=== PATIENT | female | born 1980 | race Caucasian/White ===

== ENCOUNTER 2019-01-28 18:34 | Inpatient (IN) | payer BC ==
[~2019-01-28] VITALS: Ht 160 cm; Wt 77.1 kg
[2019-01-28] MEDS ORDERED: IBUPROFEN 400 MG TABLET. PO PRN (18:45)
[2019-01-28] MEDS ORDERED: BUTORPHANOL 2 MG/ML VIAL. IV PRN ×2 (18:45)
[2019-01-28] MEDS ORDERED: CITRIC ACID/SODIUM CITRATE 30 ML SOLUTION. PO PRN (18:45)
[2019-01-28] MEDS ORDERED: ZOLPIDEM 5 MG TABLET. PO PRN (18:45)
[2019-01-28] MEDS ORDERED: 0.9 % SODIUM CHLORIDE 10 ML DISP.SYRIN. IV PRN (18:45)
[2019-01-28] MEDS ORDERED: ACETAMINOPHEN 325 MG TABLET. PO PRN (18:45)
[2019-01-28] MEDS ORDERED: OXYTOCIN 30 UNIT/500 ML PREMIX 500 ML IV PRN ×2 (18:45)
[2019-01-28] MEDS ORDERED: TERBUTALINE 1 MG/ML VIAL. SQ PRN (18:45)
[2019-01-28] MEDS ORDERED: fentaNYL PF VIAL 100 MCG/2 ML VIAL IV PRN ×2 (18:45)
[2019-01-28] MEDS ORDERED: ONDANSETRON PF 4 MG/2 ML VIAL. IV PRN (18:45)
[2019-01-28] MEDS ORDERED: LIDOCAINE 1% PF 30 ML VIAL. INJ PRN (18:45)
[2019-01-28] MEDS ORDERED: DINOPROSTONE 10 MG SUPP.VAG VG ONE (19:00)
[2019-01-28] MEDS: IV RINGERS,LACTATED 1000ML 1,000 ML IV SCH (20:00)
[2019-01-28 20:14] LABS: BASO % 0 % (0-3); EOS % 0 % (0-3); HEMATOCRIT 29.3 % (36.0-47.0); HEMOGLOBIN 9.6 g/dL (12.0-15.5); LYMPH # 1.2 x10^3/uL (1.0-4.8); LYMPH % 16 % (24-48); MEAN CORPUSCULAR HEMOGLOBIN 27 pg (25-35); MEAN CORPUSCULAR HGB CONC 33 g/dL (31-37); MEAN CORPUSCULAR VOLUME 82 fL (79-100); MONO # 0.5 x10^3/uL (0.0-1.1); MONO % 6 % (0-9); NEUT % 78 % (31-73); PLATELET COUNT 205 x10^3/uL (140-400); RED CELL DISTRIBUTION WIDTH 17.7 % (11.5-14.5); WHITE BLOOD COUNT 7.7 x10^3/uL (4.0-11.0)
[2019-01-28 20:28] LABS: BILIRUBIN,URINE NEGATIVE (NEG); CLARITY,URINE CLOUDY; COLOR,URINE YELLOW; NITRITE,URINE NEGATIVE (NEG); PROTEIN,URINE NEGATIVE (NEG-TRACE)
[2019-01-28 20:41] LABS: BACTERIA,URINE MANY /HPF (0-FEW); RBC,URINE TNTC /HPF (0-2); SQUAMOUS EPITHELIAL CELL,UR MANY /LPF
[2019-01-29] MEDS: IV RINGERS,LACTATED 1000ML 1,000 ML IV SCH ×3 (09:36→23:38)
--- NOTE | 2019-01-29 13:31 | RAD ---
EXAM: Obstetrics sonogram. HISTORY: Active labor. Spontaneous rupture of membranes. Meconium fluids. Breech presentation. TECHNIQUE: Sonographic imaging of a gravid uterus was performed. COMPARISON: None. FINDINGS: There is a single intrauterine fetus in breech presentation with a heart rate of 131 bpm. The amniotic fluid index is decreased at 2.3 cm, consistent with reported spontaneous rupture of membranes. There is a grade 2 anterior placenta without evidence of placenta previa. The gestational age based on LMP is 39 weeks and 6 days and the TAN is 01/30/2019. IMPRESSION: 1. Single intrauterine fetus in breech presentation with a heart rate of 131 bpm. 2. Decreased BILLY of 2.3 cm, consistent with ruptured membranes. Electronically signed by: Catrina Hawk MD (01/29/2019 1:28 PM) [facility]
[2019-01-29] MEDS ORDERED: fentaNYL PF VIAL 100 MCG/2 ML VIAL ONE (13:33)
[2019-01-29] MEDS ORDERED: MORPHINE PF 5 MG/10 ML VIAL. ONE (13:33)
[2019-01-29] MEDS ORDERED: PHENYLEPHRINE in 0.9% NACL PF 1 MG/10 ML SYRINGE. IV ONE ×2 (13:35→15:06)
[2019-01-29] MEDS ORDERED: ePHEDrine PF IN SALINE 50 MG/10 ML SYRINGE. IV ONE (13:35)
[2019-01-29] MEDS ORDERED: OXYTOCIN 10 UNIT/ML VIAL. ONE (13:36)
[2019-01-29] MEDS ORDERED: CITRIC ACID/SODIUM CITRATE 30 ML SOLUTION. PO ONE (13:45)
[2019-01-29] MEDS ORDERED: BUPIVACAINE MPF 0.75% DEXTROSE 2 ML AMPUL. ONE (14:17)
--- NOTE | 2019-01-29 15:43 | PDOC1 ---
OB - History Hx of Present Care: Good Care Ultrasounds: No ultrasounds Obstetrical Complications: None Medical Complications: None Past Family/Social History * Past Medical, Surgical, Family and Obstetric Histories reviewed from chart. Blood Type: A+ Rubella: Immune RPR/VDRL: Negative GBS Status: Negative HBsAG: Negative OB - Chief Complaint & HPI Date of Admission: Date of Admission: January 28, 2019 at 18:34 Chief Complaint/History : 5 Para: 4 EDC: January 30, 2019 Reason for admission: induction of labor Admission Nurse Assessment Rev: Yes OB - Admission Exam Physical Exam Heart: Regular Rate Lungs: Clear, Equal Abdomen: Gravid Extremities: Normal Pulses, No tenderness or swelling Reflexes: Normal Cervical Dilatation: 1cm Effacement: 25% Station: Ballotable Membranes: Intact Heart Rate: Normal Accelerations: Accelerations Present Short Term Variability: Present Contractions on Admission: None Assessment/Plan Assessment/Plan TIUP Schedule Induction ACSVD JUAN SEAMAN MD January 29, 2019 15:43
[2019-01-29] MEDS ORDERED: ZOLPIDEM 5 MG TABLET. PO PRN (15:45)
[2019-01-29] MEDS ORDERED: MAGNESIUM HYDROXIDE 2,400 MG/30 ML ORAL.SUSP. PO PRN (15:45)
[2019-01-29] MEDS ORDERED: 0.9 % SODIUM CHLORIDE 10 ML DISP.SYRIN. IV PRN (15:45)
[2019-01-29] MEDS ORDERED: ONDANSETRON PF 4 MG/2 ML VIAL. IV PRN (15:45)
[2019-01-29] MEDS ORDERED: MMR per PROTOCOL. MC PRN (15:45)
[2019-01-29] MEDS ORDERED: MAG HYDROX/ALUMINUM HYD/SIMETH 30 ML ORAL.SUSP PO PRN (15:45)
[2019-01-29] MEDS ORDERED: oxyCODONE/APAP 5/325 1 TAB TABLET PO PRN (15:45)
[2019-01-29] MEDS ORDERED: diphenhydrAMINE ORAL ELIXIR 12.5 MG/5 ML ML PO PRN (15:45)
[2019-01-29] MEDS ORDERED: OXYTOCIN 30 UNIT/500 ML PREMIX 500 ML IV PRN (15:45)
[2019-01-29] MEDS ORDERED: SIMETHICONE 80 MG TAB.CHEW PO PRN (15:45)
--- NOTE | 2019-01-29 15:46 | PDOC ---
BRIEF OPERATIVE NOTE Pre-Op Diagnosis TIUP BREECH multiparous desires permanent sterilization Post-Op Diagnosis Same Procedure Performed Primary LTC/S BTL Surgeon Seema Pouncer Machine None Anesthesia Type: Regional Blood Loss 700cc Specimens Obtained R and L ova ducts Findings Female 03/25 Complications None JUAN SEAMAN MD January 29, 2019 15:46
--- NOTE | 2019-01-29 16:16 | OP ---
DATE OF SURGERY: 01/29/2019 PREOPERATIVE DIAGNOSES:. Term intrauterine , initially initiated induction. The patient was found to be breech, opted for a primary and bilateral tubal ligation. POSTOPERATIVE DIAGNOSES: Term intrauterine , initially initiated induction. The patient was found to be breech, opted for a primary and bilateral tubal ligation. PROCEDURE: Primary low transverse with bilateral tubal ligation. SURGEON: Reno Stephenson M.D. ASIC ENGINEER: None. ANESTHESIA: Regional. ESTIMATED BLOOD LOSS: 700 mL. FLUIDS: Crystalloid. SPECIMENS: Bilateral oviducts, left and right. COMPLICATIONS: None. CONDITION: Stable. FINDINGS: Female infant, Apgars 8, 9 and 9, weight 7 pounds 15 ounces. Normal uterus, tubes and ovaries. DESCRIPTION OF PROCEDURE: Risks, benefits, indications, alternatives, and expectations discussed with the patient and the patient's . The patient was brought to the OR theater, placed in the supine position with left lateral uterine displacement. A low transverse Pfannenstiel incision was made sharply with a scalpel and carried down through subcutaneous tissue, Bovie cautery. Rectus fascia nicked in midline with Bovie cautery, extended laterally in each direction with Bovie cautery. Upper edge of rectus fascia was grasped x 2 with Bill clamps, elevated way above the rectus muscle. Rectus muscle both bluntly and sharply with Bovie cautery and gloved hand. Same procedure was carried out on lower edge of rectus fascia. Rectus muscle split in midline and extended superiorly and inferiorly with Bovie cautery. Parietal peritoneum was entered bluntly with gloved hand. With gentle stretch on the rectus muscle, room was made for delivery of the infant. Campbell retractor was placed within the pelvic cavity. Sponges placed in the gutters bilaterally. Low transverse hysterotomy incision was made sharply with scalpel with care not to injure any underlying structures. The incision was extended superiorly and inferiorly. The incision was then extended laterally and superiorly with gloved hand. Meconium was noted. Gloved hand was placed in the lower uterine segment, used to elevate the presenting breech. The breech was delivered in usual fashion without any difficulties. Baby cried spontaneously and moved all extremities. Infant was bulb suctioned. Cord doubly clamped, transected cord between two clamps. was handed to nursing care in attendance. Cord blood sample was taken. Placenta delivered spontaneously intact, 3-vessel cord. Uterus was wiped free of any adherent membranes. Low transverse hysterotomy incision was reapproximated with 0 Monocryl in running locking manner, imbricated with vertical mattress stitch fashion. Good hemostasis was assured. Some areas of bleeding were controlled with Jamil. Sponges were removed from the gutters. First, the left tube was delivered. A relatively avascular portion was made after the region was noted. A window was created, 2-0 plain ties were used to doubly ligate the tube approximately 2 cm apart. Tube was transected between these two ligatures and ends were burned and allowed to fall back within this anatomical position. Same procedure was carried out opposite side. Good hemostasis was assured. The Campbell retractor was removed. Gutters were inspected. Tubes and ovaries were inspected and noted be hemostatic and gutters free of any blood or debris. Lower uterine segment was free of any bleeding. Jamil was noted to have stopped any oozing that was previously present. The peritoneum was reapproximated with 3-0 Vicryl in a running manner. This stitch also reapproximated rectus muscle in the midline. Rectus muscle inspected and no areas of bleeding were noted. Rectus fascia was reapproximated with 0 Prolene self-retaining stitch, Stratafix. Subcutaneous tissue was irrigated copiously with warm normal saline. Rochelle fascia was reapproximated with 2-0 plain. The skin was reapproximated with Insorb nehal. Sponge, needle, instrument counts correct x 2 per nursing staff. The patient went to postop anesthesia recovery in stable condition. RENO STEPHENSON MD DR: NIDIA/carmen JOB#: [id number] / [id number]
[2019-01-29] MEDS: FERROUS SULFATE 325 MG TABLET. PO SCH (17:00)
[2019-01-29] MEDS ORDERED: KETOROLAC 30 MG/ML VIAL. IV PRN (17:30)
[2019-01-29] MEDS: KETOROLAC 30 MG/ML VIAL. IV PRN ×2 (17:31→23:43)
[2019-01-29 20:07] VITALS: BP 130/73
[2019-01-29 21:19] VITALS: BP 126/69
[2019-01-29] MEDS: ceFAZolin SODIUM IV Push 1 GM VIAL. IVP SCH (21:41)
[2019-01-29] MEDS ORDERED: ceFAZolin SODIUM 1 GM in IV DEXTROSE 5% 50 ML IV SCH (22:00)
[2019-01-30 01:40] VITALS: BP 113/67
[2019-01-30 04:23] LABS: BASO % 0 % (0-3); EOS % 0 % (0-3); HEMATOCRIT 25.8 % (36.0-47.0); HEMOGLOBIN 8.3 g/dL (12.0-15.5); LYMPH # 0.9 x10^3/uL (1.0-4.8); LYMPH % 11 % (24-48); MEAN CORPUSCULAR HEMOGLOBIN 26 pg (25-35); MEAN CORPUSCULAR HGB CONC 32 g/dL (31-37); MEAN CORPUSCULAR VOLUME 82 fL (79-100); MONO # 0.4 x10^3/uL (0.0-1.1); MONO % 5 % (0-9); NEUT # 6.7 x10^3uL (1.8-7.7); NEUT % 83 % (31-73); PLATELET COUNT 173 x10^3/uL (140-400); RED BLOOD COUNT 3.16 x10^6/uL (3.50-5.40); RED CELL DISTRIBUTION WIDTH 17.7 % (11.5-14.5); WHITE BLOOD COUNT 8.1 x10^3/uL (4.0-11.0)
[2019-01-30 05:41] VITALS: BP 117/62
[2019-01-30] MEDS: oxyCODONE/APAP 5/325 1 TAB TABLET PO PRN ×4 (06:29→19:58)
[2019-01-30] MEDS: IBUPROFEN 400 MG TABLET. PO SCH ×2 (06:29→19:58)
[2019-01-30] MEDS: ceFAZolin SODIUM IV Push 1 GM VIAL. IVP SCH ×2 (06:31→13:23)
--- NOTE | 2019-01-30 08:07 | PDOC ---
OB Progress Note Date of Service 01/30/19 Time of Evaluation 0805 Notes Pt. feeling well. No complaints. Lab Laboratory Tests Test 01/28/19 19:28 01/28/19 19:50 01/28/19 21:10 01/30/19 03:05 Urine Collection Type Unknown Urine Color Yellow Urine Clarity Cloudy Urine pH 6.0 Urine Specific [place] 1.025 Urine Protein Negative mg/dL (NEG-TRACE) Urine Glucose (UA) Negative mg/dL (NEG) Urine Ketones (Stick) 15 mg/dL (NEG) Urine Blood Large (NEG) Urine Nitrite Negative (NEG) Urine Bilirubin Negative (NEG) Urine Urobilinogen Dipstick 1.0 mg/dL (0.2 mg/dL) Urine Leukocyte Esterase Small (NEG) Urine RBC Tntc /HPF (0-2) Urine WBC 11-20 /HPF (0-4) Urine Squamous Epithelial Cells Many /LPF Urine Bacteria Many /HPF (0-FEW) Urine Mucus Marked /LPF White Blood Count 7.7 x10^3/uL (4.0-11.0) 8.1 x10^3/uL (4.0-11.0) Red Blood Count 3.60 x10^6/uL (3.50-5.40) 3.16 x10^6/uL (3.50-5.40) Hemoglobin 9.6 g/dL (12.0-15.5) 8.3 g/dL (12.0-15.5) Hematocrit 29.3 % (36.0-47.0) 25.8 % (36.0-47.0) Mean Corpuscular Volume 82 fL (79-100) 82 fL (79-100) Mean Corpuscular Hemoglobin 27 pg (25-35) 26 pg (25-35) Mean Corpuscular Hemoglobin Concent 33 g/dL (31-37) 32 g/dL (31-37) Red Cell Distribution Width 17.7 % (11.5-14.5) 17.7 % (11.5-14.5) Platelet Count 205 x10^3/uL (140-400) 173 x10^3/uL (140-400) Neutrophils (%) (Auto) 78 % (31-73) 83 % (31-73) Lymphocytes (%) (Auto) 16 % (24-48) 11 % (24-48) Monocytes (%) (Auto) 6 % (0-9) 5 % (0-9) Eosinophils (%) (Auto) 0 % (0-3) 0 % (0-3) Basophils (%) (Auto) 0 % (0-3) 0 % (0-3) Neutrophils # (Auto) 6.0 x10^3uL (1.8-7.7) 6.7 x10^3uL (1.8-7.7) Lymphocytes # (Auto) 1.2 x10^3/uL (1.0-4.8) 0.9 x10^3/uL (1.0-4.8) Monocytes # (Auto) 0.5 x10^3/uL (0.0-1.1) 0.4 x10^3/uL (0.0-1.1) Eosinophils # (Auto) 0.0 x10^3/uL (0.0-0.7) 0.0 x10^3/uL (0.0-0.7) Basophils # (Auto) 0.0 x10^3/uL (0.0-0.2) 0.0 x10^3/uL (0.0-0.2) Treponema pallidum Antibody Nonreactive (Nonreactive) Laboratory Tests Test 01/30/19 03:05 White Blood Count 8.1 x10^3/uL (4.0-11.0) Red Blood Count 3.16 x10^6/uL (3.50-5.40) Hemoglobin 8.3 g/dL (12.0-15.5) Hematocrit 25.8 % (36.0-47.0) Mean Corpuscular Volume 82 fL (79-100) Mean Corpuscular Hemoglobin 26 pg (25-35) Mean Corpuscular Hemoglobin Concent 32 g/dL (31-37) Red Cell Distribution Width 17.7 % (11.5-14.5) Platelet Count 173 x10^3/uL (140-400) Neutrophils (%) (Auto) 83 % (31-73) Lymphocytes (%) (Auto) 11 % (24-48) Monocytes (%) (Auto) 5 % (0-9) Eosinophils (%) (Auto) 0 % (0-3) Basophils (%) (Auto) 0 % (0-3) Neutrophils # (Auto) 6.7 x10^3uL (1.8-7.7) Lymphocytes # (Auto) 0.9 x10^3/uL (1.0-4.8) Monocytes # (Auto) 0.4 x10^3/uL (0.0-1.1) Eosinophils # (Auto) 0.0 x10^3/uL (0.0-0.7) Basophils # (Auto) 0.0 x10^3/uL (0.0-0.2) Medications Current Medications Sodium Chloride (Normal Saline Flush) 3 ml QSHIFT PRN IV AFTER MEDS AND BLOOD DRAWS; Start 01/28/19 at 18:45 Ringer's Solution 1,000 ml @ 125 mls/hr Q8H IV Last administered on 01/29/19at 23:38; Start 01/28/19 at 19:00 Butorphanol Tartrate (Stadol) 1 mg PRN Q1HR PRN IV mild to moderate labor pain; Start 01/28/19 at 18:45 Butorphanol Tartrate (Stadol) 2 mg PRN Q1HR PRN IV Severe labor pain; Start 01/28/19 at 18:45 Fentanyl Citrate (Fentanyl 2ml Vial) 50 mcg PRN Q30MIN PRN IV Mild to moderate pain; Start 01/28/19 at 18:45 Fentanyl Citrate (Fentanyl 2ml Vial) 100 mcg PRN Q30MIN PRN IV Severe pain; Start 01/28/19 at 18:45 Acetaminophen (Tylenol) 650 mg PRN Q6HRS PRN PO MILD PAIN / TEMP; Start 01/28/19 at 18:45 Ondansetron HCl (Zofran) 4 mg PRN Q4HRS PRN IV NAUSEA/VOMITING; Start 01/28/19 at 18:45 Citric Acid/ Sodium Citrate (Bicitra) 30 ml 1X PRN PRN PO DYSPEPSIA; Start 01/28/19 at 18:45; Stop 01/29/19 at 18:44; Status DC Zolpidem Tartrate (Ambien) 5 mg PRN QHS PRN PO INSOMNIA; Start 01/28/19 at 18:45 Terbutaline Sulfate (Brethine) 0.25 mg 1X PRN PRN SQ SEE COMMENTS; Start 01/28/19 at 18:45; Stop 01/29/19 at 18:44; Status DC Lidocaine HCl (Xylocaine 1% Pf 30ml Vial) 30 ml 1X PRN PRN INJ SEE COMMENTS; Start 01/28/19 at 18:45; Stop 01/30/19 at 18:44 Oxytocin/Sodium Chloride 500 ml @ 0 mls/hr CONT PRN IV SEE I/O RECORD Last administered on 01/29/19at 09:37; Start 01/28/19 at 18:45 Oxytocin/Sodium Chloride 500 ml @ 0 mls/hr CONT PRN PRN IV Post delivery bleeding; Start 01/28/19 at 18:45 Ibuprofen (Motrin) 800 mg PRN Q6HRS PRN PO PAIN; Start 01/28/19 at 18:45 Dinoprostone (Cervidil) 10 mg 1X ONCE VG Last administered on 01/28/19at 19:59; Start 01/28/19 at 19:00; Stop 01/28/19 at 19:01; Status DC Fentanyl Citrate (Fentanyl 2ml Vial) 100 mcg STK-MED ONCE .ROUTE ; Start 01/29/19 at 13:33; Stop 01/29/19 at 13:34; Status DC Morphine Sulfate (Morphine Preservative Free) 5 mg STK-MED ONCE .ROUTE ; Start 01/29/19 at 13:33; Stop 01/29/19 at 13:34; Status DC Phenylephrine HCl (PHENYLEPHRINE in 0.9% NACL PF) 1 mg STK-MED ONCE IV ; Start 01/29/19 at 13:35; Stop 01/29/19 at 13:36; Status DC Ephedrine Sulfate (ePHEDrine PF IN SALINE SYRINGE) 50 mg STK-MED ONCE IV ; St art 01/29/19 at 13:35; Stop 01/29/19 at 13:36; Status DC Oxytocin (Pitocin) 10 unit STK-MED ONCE .ROUTE ; Start 01/29/19 at 13:36; Stop 01/29/19 at 13:37; Status DC Citric Acid/ Sodium Citrate (Bicitra) 30 ml 1X ONCE PO Last administered on 01/29/19at 13:43; Start 01/29/19 at 13:45; Stop 01/29/19 at 13:46; Status DC Cefazolin Sodium/ Dextrose 50 ml @ 100 mls/hr 1X ONCE IV Last administered on 01/29/19at 13:43; Start 01/29/19 at 13:45; Stop 01/29/19 at 14:14; Status DC Bupivacaine HCl/ Dextrose (Marcaine Spinal 0.75%) 2 ml STK-MED ONCE .ROUTE ; Start 01/29/19 at 14:17; Stop 01/29/19 at 14:18; Status DC Phenylephrine HCl (PHENYLEPHRINE in 0.9% NACL PF) 1 mg STK-MED ONCE IV ; Start 01/29/19 at 15:06; Stop 01/29/19 at 15:07; Status DC Sodium Chloride (Normal Saline Flush) 3 ml QSHIFT PRN IV AFTER MEDS AND BLOOD DRAWS; Start 01/29/19 at 15:45 Oxytocin/Sodium Chloride 500 ml @ 125 mls/hr CONT PRN IV EXCESSIVE POST- BLEEDING; Start 01/29/19 at 15:45; Stop 01/29/19 at 23:44; Status DC Ibuprofen (Motrin) 800 mg Q8HRS PO Last administered on 01/30/19at 06:29; Start 01/29/19 at 22:00 Ondansetron HCl (Zofran) 4 mg PRN Q6HRS PRN IV NAUSEA/VOMITING; Start 01/29/19 at 15:45; Status UNV Docusate Sodium (Colace) 100 mg PRN BID PRN PO HARD STOOLS; Start 01/29/19 at 15:45 Magnesium Hydroxide (Milk Of Magnesia) 2,400 mg PRN DAILY PRN PO CONSTIPATION; Start 01/29/19 at 15:45 Al Hydroxide/Mg Hydroxide (Mylanta Plus Xs) 30 ml PRN Q4HRS PRN PO HEARTBURN / GAS; Start 01/29/19 at 15:45 Simethicone (Gas-X) 80 mg PRN AFTMEALHC PRN PO GAS / BLOATING; Start 01/29/19 at 15:45 Diphenhydramine HCl (Benadryl Oral Elixir) 12.5 mg PRN Q6HRS PRN PO ITCHING; Start 01/29/19 at 15:45 Ferrous Sulfate (Feosol) 325 mg BIDWMEALS PO ; Start 01/29/19 at 17:00 Zolpidem Tartrate (Ambien) 5 mg PRN QHS PRN PO INSOMNIA, MAY REPEAT X1; Start 01/29/19 at 15:45 Info (Do NOT chart on this placeholder) 1 ea PRN 1X PRN MC SEE COMMENTS; Start 01/29/19 at 15:45 Info (Do NOT chart on this placeholder) 1 ea PRN 1X PRN MC SEE COMMENTS; Start 01/29/19 at 15:45 Oxycodone/ Acetaminophen (Percocet 5/325) 1 tab PRN Q4HRS PRN PO MODERATE PAIN Last administered on 01/30/19at 06:29; Start 01/29/19 at 15:45 Oxycodone/ Acetaminophen (Percocet 5/325) 2 tab PRN Q4HRS PRN PO SEVERE PAIN; Start 01/29/19 at 15:45 Cefazolin Sodium 1 gm/Dextrose 50 ml @ 100 mls/hr Q8HRS IV ; Start 01/29/19 at 22:00; Status UNV Cefazolin Sodium (Ancef) 1 gm Q8H IVP Last administered on 01/30/19at 06:31; Start 01/29/19 at 22:00; Stop 01/30/19 at 14:01 Ketorolac Tromethamine (Toradol 30mg Vial) 30 mg PRN Q6HRS PRN IV PAIN Last administered on 01/29/19at 23:43; Start 01/29/19 at 17:15; Stop 02/03/19 at 17:14 Ketorolac Tromethamine (Toradol 30mg Vial) 30 mg PRN Q6HRS PRN IV PAIN; Start 01/29/19 at 17:30; Stop 01/29/19 at 17:30; Status DC Exam Abd: soft, mild tenderness, fundus firm Prevena in place Assessment POD#1 s/p c/s Plan of Care: Continue current Tx, Mgmt AARON LEWIS Jr, MD January 30, 2019 08:07
[2019-01-30 11:25] VITALS: BP 119/68
[2019-01-30] MEDS: FERROUS SULFATE 325 MG TABLET. PO SCH ×2 (11:42→13:22)
[2019-01-30] MEDS: DOCUSATE SODIUM 100 MG CAPSULE. PO PRN ×3 (11:43→19:57)
[2019-01-30 14:00] VITALS: BP 122/66
[2019-01-30 23:14] VITALS: BP 120/79
[2019-01-31 06:16] VITALS: BP 110/71
[2019-01-31] MEDS: IBUPROFEN 400 MG TABLET. PO SCH ×2 (08:58→19:53)
[2019-01-31] MEDS: FERROUS SULFATE 325 MG TABLET. PO SCH (08:59)
[2019-01-31] MEDS: DOCUSATE SODIUM 100 MG CAPSULE. PO PRN ×2 (08:59→19:53)
[2019-01-31] MEDS ORDERED: DIPHTH,PERTUSS(ACELL),TET TOX 0.5 ML DISP.SYRIN. VAX IM ONE (09:00)
--- NOTE | 2019-01-31 09:47 | PDOC ---
OB Progress Note Date of Service 01/31/19 Time of Evaluation 0945 Notes Pt. feeling well. No complaints. Lab Laboratory Tests Test 01/30/19 03:05 White Blood Count 8.1 x10^3/uL (4.0-11.0) Red Blood Count 3.16 x10^6/uL (3.50-5.40) Hemoglobin 8.3 g/dL (12.0-15.5) Hematocrit 25.8 % (36.0-47.0) Mean Corpuscular Volume 82 fL (79-100) Mean Corpuscular Hemoglobin 26 pg (25-35) Mean Corpuscular Hemoglobin Concent 32 g/dL (31-37) Red Cell Distribution Width 17.7 % (11.5-14.5) Platelet Count 173 x10^3/uL (140-400) Neutrophils (%) (Auto) 83 % (31-73) Lymphocytes (%) (Auto) 11 % (24-48) Monocytes (%) (Auto) 5 % (0-9) Eosinophils (%) (Auto) 0 % (0-3) Basophils (%) (Auto) 0 % (0-3) Neutrophils # (Auto) 6.7 x10^3uL (1.8-7.7) Lymphocytes # (Auto) 0.9 x10^3/uL (1.0-4.8) Monocytes # (Auto) 0.4 x10^3/uL (0.0-1.1) Eosinophils # (Auto) 0.0 x10^3/uL (0.0-0.7) Basophils # (Auto) 0.0 x10^3/uL (0.0-0.2) Medications Current Medications Sodium Chloride (Normal Saline Flush) 3 ml QSHIFT PRN IV AFTER MEDS AND BLOOD DRAWS; Start 01/28/19 at 18:45; Stop 01/30/19 at 13:47; Status DC Ringer's Solution 1,000 ml @ 125 mls/hr Q8H IV Last administered on 01/29/19at 23:38; Start 01/28/19 at 19:00; Stop 01/30/19 at 13:47; Status DC Butorphanol Tartrate (Stadol) 1 mg PRN Q1HR PRN IV mild to moderate labor pain; Start 01/28/19 at 18:45; Stop 01/30/19 at 13:47; Status DC Butorphanol Tartrate (Stadol) 2 mg PRN Q1HR PRN IV Severe labor pain; Start 01/28/19 at 18:45; Stop 01/30/19 at 13:47; Status DC Fentanyl Citrate (Fentanyl 2ml Vial) 50 mcg PRN Q30MIN PRN IV Mild to moderate pain; Start 01/28/19 at 18:45; Stop 01/30/19 at 13:48; Status DC Fentanyl Citrate (Fentanyl 2ml Vial) 100 mcg PRN Q30MIN PRN IV Severe pain; Start 01/28/19 at 18:45; Stop 01/30/19 at 13:48; Status DC Acetaminophen (Tylenol) 650 mg PRN Q6HRS PRN PO MILD PAIN / TEMP; Start at 18:45 Ondansetron HCl (Zofran) 4 mg PRN Q4HRS PRN IV NAUSEA/VOMITING; Start 01/28/19 at 18:45 Citric Acid/ Sodium Citrate (Bicitra) 30 ml 1X PRN PRN PO DYSPEPSIA; Start 01/28/19 at 18:45; Stop 01/29/19 at 18:44; Status DC Zolpidem Tartrate (Ambien) 5 mg PRN QHS PRN PO INSOMNIA; Start 01/28/19 at 18:45; Stop 01/30/19 at 13:48; Status DC Terbutaline Sulfate (Brethine) 0.25 mg 1X PRN PRN SQ SEE COMMENTS; Start 01/28/19 at 18:45; Stop 01/29/19 at 18:44; Status DC Lidocaine HCl (Xylocaine 1% Pf 30ml Vial) 30 ml 1X PRN PRN INJ SEE COMMENTS; Start 01/28/19 at 18:45; Stop 01/30/19 at 13:48; Status DC Oxytocin/Sodium Chloride 500 ml @ 0 mls/hr CONT PRN IV SEE I/O RECORD Last administered on 01/29/19at 09:37; Start 01/28/19 at 18:45; Stop 01/30/19 at 18:18; Status DC Oxytocin/Sodium Chloride 500 ml @ 0 mls/hr CONT PRN PRN IV Post delivery bleeding; Start 01/28/19 at 18:45; Stop 01/30/19 at 18:18; Status DC Ibuprofen (Motrin) 800 mg PRN Q6HRS PRN PO PAIN; Start 01/28/19 at 18:45; Stop 01/30/19 at 13:49; Status DC Dinoprostone (Cervidil) 10 mg 1X ONCE VG Last administered on 01/28/19at 19:59; Start 01/28/19 at 19:00; Stop 01/28/19 at 19:01; Status DC Fentanyl Citrate (Fentanyl 2ml Vial) 100 mcg STK-MED ONCE .ROUTE ; Start 01/29/19 at 13:33; Stop 01/29/19 at 13:34; Status DC Morphine Sulfate (Morphine Preservative Free) 5 mg STK-MED ONCE .ROUTE ; Start 01/29/19 at 13:33; Stop 01/29/19 at 13:34; Status DC Phenylephrine HCl (PHENYLEPHRINE in 0.9% NACL PF) 1 mg STK-MED ONCE IV ; Start 01/29/19 at 13:35; Stop 01/29/19 at 13:36; Status DC Ephedrine Sulfate (ePHEDrine PF IN SALINE SYRINGE) 50 mg STK-MED ONCE IV ; Start 01/29/19 at 13:35; Stop 01/29/19 at 13:36; Status DC Oxytocin (Pitocin) 10 unit STK-MED ONCE .ROUTE ; Start 01/29/19 at 13:36; Stop 01/29/19 at 13:37; Status DC Citric Acid/ Sodium Citrate (Bicitra) 30 ml 1X ONCE PO Last administered on 01/29/19at 13:43; Start 01/29/19 at 13:45; Stop 01/30/19 at 13:48; Status DC Cefazolin Sodium/ Dextrose 50 ml @ 100 mls/hr 1X ONCE IV Last administered on 01/29/19at 13:43; Start 01/29/19 at 13:45; Stop 01/30/19 at 13:47; Status DC Bupivacaine HCl/ Dextrose (Marcaine Spinal 0.75%) 2 ml STK-MED ONCE .ROUTE ; Start 01/29/19 at 14:17; Stop 01/30/19 at 13:47; Status DC Phenylephrine HCl (PHENYLEPHRINE in 0.9% NACL PF) 1 mg STK-MED ONCE IV ; Start 01/29/19 at 15:06; Stop 01/30/19 at 13:48; Status DC Sodium Chloride (Normal Saline Flush) 3 ml QSHIFT PRN IV AFTER MEDS AND BLOOD DRAWS; Start 01/29/19 at 15:45; Stop 01/30/19 at 13:47; Status DC Oxytocin/Sodium Chloride 500 ml @ 125 mls/hr CONT PRN IV EXCESSIVE POST- BLEEDING; Start 01/29/19 at 15:45; Stop 01/29/19 at 23:44; Status DC Ibuprofen (Motrin) 800 mg Q8HRS PO Last administered on 01/31/19at 08:58; Start 01/29/19 at 22:00 Ondansetron HCl (Zofran) 4 mg PRN Q6HRS PRN IV NAUSEA/VOMITING; Start 01/29/19 at 15:45; Status UNV Docusate Sodium (Colace) 100 mg PRN BID PRN PO HARD STOOLS Last administered on 01/31/19at 08:59; Start 01/29/19 at 15:45 Magnesium Hydroxide (Milk Of Magnesia) 2,400 mg PRN DAILY PRN PO CONSTIPATION Last administered on 01/31/19at 09:00; Start 01/29/19 at 15:45 Al Hydroxide/Mg Hydroxide (Mylanta Plus Xs) 30 ml PRN Q4HRS PRN PO HEARTBURN / GAS; Start 01/29/19 at 15:45; Stop 01/30/19 at 13:48; Status DC Simethicone (Gas-X) 80 mg PRN AFTMEALHC PRN PO GAS / BLOATING; Start 01/29/19 at 15:45 Diphenhydramine HCl (Benadryl Oral Elixir) 12.5 mg PRN Q6HRS PRN PO ITCHING; Start 01/29/19 at 15:45 Ferrous Sulfate (Feosol) 325 mg BIDWMEALS PO Last administered on 01/31/19at 08:59; Start 01/29/19 at 17:00 Zolpidem Tartrate (Ambien) 5 mg PRN QHS PRN PO INSOMNIA, MAY REPEAT X1; Start 01/29/19 at 15:45 Info (Do NOT chart on this placeholder) 1 ea PRN 1X PRN MC SEE COMMENTS; Start 01/29/19 at 15:45 Info (Do NOT chart on this placeholder) 1 ea PRN 1X PRN MC SEE COMMENTS; Start 01/29/19 at 15:45; Stop 01/30/19 at 13:48; Status DC Oxycodone/ Acetaminophen (Percocet 5/325) 1 tab PRN Q4HRS PRN PO MODERATE PAIN Last administered on 01/30/19at 19:58; Start 01/29/19 at 15:45 Oxycodone/ Acetaminophen (Percocet 5/325) 2 tab PRN Q4HRS PRN PO SEVERE PAIN; Start 01/29/19 at 15:45 Cefazolin Sodium 1 gm/Dextrose 50 ml @ 100 mls/hr Q8HRS IV ; Start 01/29/19 at 22:00; Status UNV Cefazolin Sodium (Ancef) 1 gm Q8H IVP Last administered on 01/30/19at 13:23; Start 01/29/19 at 22:00; Stop 01/30/19 at 13:48; Status DC Ketorolac Tromethamine (Toradol 30mg Vial) 30 mg PRN Q6HRS PRN IV PAIN Last administered on 01/29/19at 23:43; Start 01/29/19 at 17:15; Stop 01/30/19 at 13:48; Status DC Ketorolac Tromethamine (Toradol 30mg Vial) 30 mg PRN Q6HRS PRN IV PAIN; Start 01/29/19 at 17:30; Stop 01/29/19 at 17:30; Status DC Diphtheria/ Tetanus/Acell Pertussis (Boostrix) 0.5 ml ONCE ONCE VAX IM ; Start 01/31/19 at 09:00; Stop 01/31/19 at 09:01; Status DC Exam Abd: soft, mild tenderness, fundus firm Prevena in place Assessment POD#2 s/p repeat c/s Plan of Care: Continue current Tx, Mgmt AARON LEWIS Jr, MD January 31, 2019 09:46
[2019-01-31 11:20] VITALS: BP 115/74
[2019-01-31] MEDS: oxyCODONE/APAP 5/325 1 TAB TABLET PO PRN ×2 (13:21→19:53)
[2019-01-31 18:00] VITALS: BP 121/72
--- NOTE | 2019-01-31 18:06 | PATHOLOGY ---
[facility] Accession Number: [id number] . 01 Material submitted: . PART A: placenta - PLACENTA AND CORD PART B: fallopian tube - RIGHT FALLOPIAN TUBE PART C: fallopian tube - LEFT FALLOPIAN TUBE. Modifiers: left . 01 Clinical history: . Breech section EDC: 01/30/2019 P: 4 Apgars 8, 9, 9 Thick and/or viscid meconium . 02 Diagnosis: A. 447 gram term placenta of an estimated 39-40 weeks gestation with attached membranes and attached and detached segments of umbilical cord: - Subamniotic pigmented macrophages consistent with meconium staining. . B. Right tubal ligation: - Segment of fallopian tube confirmed, with small right paratubal cyst. . C. Left tubal ligation: - Segment of fallopian tube confirmed. LBQ/01/31/2019 . 02 Comment: The placenta shows no evidence of an acute chorioamnionitis or villitis. There are no infarcts. (JPM/db; 01/31/2019) . 02 Electronically signed: . Dyllan Branch MD, Pathologist NPI- [id number] . 01 Gross description: . A. The specimen is received in formalin labeled "Rafael, Latessa, placenta" and consists of an oval sanders placenta measuring 16.8 x 15.8 x 3.0 cm and weighing 477 g after removal of membranes and umbilical cord. The membranes are pink-chester, thin, and translucent. The surface is yellow-green and well vascularized with a near centrally inserted 3 vessel umbilical cord, 6.0 from edge. The cord measures 6.5 cm in length and up to 0.8 cm in diameter. Received detached is a second segment of umbilical cord measuring 32.4 cm in length and up to 1.2 cm in diameter. Both segments of cord are white with moderate twists and partially edematous. The amnion and chorion are moderately . The maternal surface shows complete and intact cotyledons with moderate adherent blood clot (20-30 mL) and a few scattered yellow-chester lesions measuring up to 2.0 cm. Sectioning reveals a maroon-red and spongy parenchyma with no gross lesions. [employer] Chief sections are submitted as follows: . A1: Periphery and membrane roll A2: Umbilical cord A3-A4: Full-thickness section A5: Maternal surface lesions . B. The specimen is received in formalin, labeled "Rafael, Latessa, Rt fallopian tube" and consists of a nonfimbriated segment of fallopian tube measuring 1.4 cm in length and 0.5 cm in diameter which displays 2 paratubal cyst measuring 0.2 cm and 0.4 cm. Sectioning reveals a well-defined central lumen and the specimen is entirely submitted in B1. . C. The specimen is received in formalin, labeled "Rafael, Latessa, left fallopian tube" and consists of a nonfimbriated segment of fallopian tube measuring 1.4 cm in length and 0.5 cm in diameter. Sectioning reveals a well-defined lumen and the specimen is entirely submitted in C1. (SDY; 01/30/2019) SYU/SYU . 02 Pathologist provided ICD-10: O82, O77.0, N83.8, Z3A.39, Z37.0 . 02 CPT . 751417, 386274, [id number] Specimen Comment: A courtesy copy of this report has been sent to Specimen Comment: [phone], . Specimen Comment: Report sent to / DR FORDE Performed at: 01 [facility] [address], [place] [id number] MD Rajeev Dhaliwal MD Phone: [phone] Performed at: 02 [facility] [address] [place], [place] [id number] MD Dyllan Branch MD Phone: [phone]
[2019-01-31 22:49] VITALS: BP 117/75
[2019-01-31 22:50] VITALS: BP 117/75
[2019-02-01] MEDS: DOCUSATE SODIUM 100 MG CAPSULE. PO PRN ×2 (06:02→18:35)
[2019-02-01] MEDS: oxyCODONE/APAP 5/325 1 TAB TABLET PO PRN ×3 (06:03→18:35)
[2019-02-01] MEDS: IBUPROFEN 400 MG TABLET. PO SCH (06:03)
[2019-02-01 06:18] VITALS: BP 131/71
[2019-02-01 11:20] VITALS: BP 119/73
[2019-02-01 15:30] VITALS: BP 124/77
[2019-02-01] MEDS ORDERED: traMADol 50 MG TABLET PO PRN (17:45)
--- NOTE | 2019-02-01 18:12 | NUR ---
Pt discharge to home with tramadol 50mg called into [facility]. Pt to f/u with Dr Stephenson in 1 week
[2019-02-01] MEDS: FERROUS SULFATE 325 MG TABLET. PO SCH (18:35)
== END 2019-02-01 18:44 | disposition home or self-care (01) | DRG 784 ==
LOC: 3 SO LND 18:34 → 3 NORTH 01-29 19:50
PROVIDERS: ADMIT Specialist; ATTEND Specialist
PROC: 0UB70ZZ Excision of Bilateral Fallopian Tubes, Open Approach (ICD-10-PCS; principal; 2019-01-29)
PROC: 10D00Z1 Extraction of Products of Conception, Low, Open Approach (ICD-10-PCS; 2019-01-29)
DX: O32.1XX0 Maternal care for breech presentation, not applicable or unspecified (principal); R71.0 Precipitous drop in hematocrit; O77.0 Labor and delivery complicated by meconium in amniotic fluid; Z30.2 Encounter for sterilization; Z37.0 Single live birth; Z3A.00 Weeks of gestation of pregnancy not specified
CPT/HCPCS: 36415; 76815; 81001; 85025; 86592; 86850; 86900; 86901; 87086; 88302; 88307; 90471; 90715; J0171; J0690; J0696; J1885; J2270; J2370; J2590; J3010; J7120